=== PATIENT | female | born 1945 | race Caucasian/White ===

== ENCOUNTER 2018-04-04 21:43 | Emergency (ER) | payer OTHER, BC ==
[2018-04-04 22:19] VITALS: BP 108/86; PULSE 92; TEMP 98.6; BMI 24.0
--- NOTE | 2018-04-04 22:30 | PDOC ---
History of Present Illness - General Chief Complaint: Shortness of Breath Stated Complaint: SOB Time Seen by Provider: 04/04/18 22:05 History Source: Patient Exam Limitations: No Limitations - History of Present Illness Initial Comments: 04/04/18 22:24 This is a 73-year-old woman with past medical history of peptic ulcers, seizures , hyperlipidemia, bronchiectasis, basal cell carcinoma, A. fib who presents emergency Department with acute on chronic shortness of breath. Patient states she was recently diagnosed with bronchiectasis and is under the care of a program technician at the [facility]. At the same time she began seeing a tool die maker who increased her carvedilol at that time. Patient states that throughout the day today she was at her son's house and playing with the dog but did not have any exertion at that time. Patient also states she was in [place] one week ago and was evaluated for similar symptoms at that time. Patient states she is scheduled for an echo and stress test on April 19. She denies chest pain, dizziness, blurry vision, abdominal pain, nausea, vomiting. Tower Director: Ariadna Mojica Cards: [facility] Past History - Past Medical History Allergies/Adverse Reactions: Allergies Allergy/AdvReac Type Severity Reaction Status Date / Time adhesive Allergy Verified 04/04/18 21:56 bacitracin Allergy Verified 04/04/18 21:56 levofloxacin [From Levaquin] Allergy Verified 04/04/18 21:55 Sulfa (Sulfonamide Allergy Verified 04/04/18 21:55 Antibiotics) - Suicide/Smoking/Psychosocial Hx Smoking History: Never smoked Have you smoked in the past 12 months: No Information on smoking cessation initiated: No Hx Alcohol Use: No Drug/Substance Use Hx: No Review of Systems - Review of Systems Able to Perform ROS?: Yes Is the patient limited Tuvaluan proficient: No Constitutional: No: Symptoms Reported HEENTM: No: Symptoms Reported Respiratory: Yes: See HPI Cardiac (ROS): No: Symptoms Reported ABD/GI: No: Symptoms Reported : No: Symptoms Reported Musculoskeletal: No: Symptoms Reported Integumentary: No: Symptoms Reported Neurological: No: Symptoms reported Endocrine: No: Symptoms Reported Hematologic/Lymphatic: No: Symptoms Reported *Physical Exam - Vital Signs Last Vital Signs Temp Pulse Resp BP Pulse Ox 98.6 F 92 H 18 108/86 95 04/04/18 21:56 04/04/18 21:56 04/04/18 21:56 04/04/18 21:56 04/04/18 21:56 - Physical Exam General Appearance: Yes: Appropriately Dressed. No: Apparent Distress HEENT: positive: Normal ENT Inspection Neck: positive: Trachea midline, Supple Respiratory/Chest: positive: Lungs Clear, Normal Breath Sounds. negative: Respiratory Distress, Accessory Muscle Use Cardiovascular: positive: Irregularly Irregular. negative: Edema, Murmur Gastrointestinal/Abdominal: positive: Normal Bowel Sounds, Soft. negative: Tender Musculoskeletal: positive: Normal Inspection. negative: CVA Tenderness Extremity: positive: Normal Inspection Integumentary: positive: Normal Color, Dry, Warm Neurologic: positive: Fully Oriented, Alert, Normal Response, Motor Strength 02/10 ED Treatment Course - LABORATORY CBC & Chemistry Diagram: 04/04/18 22:48 04/04/18 22:48 Medical Decision Making - Medical Decision Making 04/04/18 22:48 A/P: 73-year-old female with multiple problems with acute on chronic shortness of breath Lungs clear to auscultation bilaterally Patient noted to have heart rate in the 40s upon examination. Differential diagnoses include ACS, CHF, bronchiectasis, A. fib, medication noncompliance. PE is less likely given patient is on therapeutic anticoagulation. Labs, EKG, chest x-ray Patient will likely need admission 04/04/18 23:40 Chest x-rays read by me: Angles clear. Cardiac silhouette is within normal limits. No pneumothorax is identified. No focal infiltrates or consolidations noted. EKG: A. fib with rate of 71. 04/05/18 00:29 04/05/18 01:10 Notified by RN the patient eloped from the emergency department. IV removed prior to departure. *DC/Admit/Observation/Transfer Diagnosis at time of Disposition: Shortness of breath - Discharge Dispostion Disposition: ELOPED - Referrals - Patient Instructions - Post Discharge Activity
[2018-04-04 23:09] LABS: EOS % 5.8 % (0-4.5); HEMATOCRIT 39.4 % (32.4-45.2); HEMOGLOBIN 13.3 GM/dL (10.7-15.3); MCH 31.8 pg (25.7-33.7); MCHC 33.9 g/dl (32.0-36.0); MEAN CELL VOLUME 93.9 fl (80-96); MEAN PLT VOLUME 8.6 fl (7.5-11.1); NEUT % 63.2 % (42.8-82.8); PLATELET COUNT 345 K/MM3 (134-434); RBC 4.19 M/mm3 (3.60-5.2); RDW 12.9 % (11.6-15.6); WHITE BLOOD COUNT 9.7 K/mm3 (4.0-10.0)
[2018-04-04 23:24] LABS: INR 1.94 (0.82-1.09); PROTHROMBIN TIME (PATIENT) 21.9 SEC (9.7-13.0)
--- NOTE | 2018-04-04 23:29 | PDOC ---
*Physical Exam - Vital Signs Last Vital Signs Temp Pulse Resp BP Pulse Ox 98.6 F 92 H 18 108/86 95 04/04/18 21:56 04/04/18 21:56 04/04/18 21:56 04/04/18 21:56 04/04/18 21:56 ED Treatment Course - LABORATORY CBC & Chemistry Diagram: 04/04/18 22:48 04/04/18 22:48 - ADDITIONAL ORDERS Additional order review: Laboratory Results 04/04/18 22:48 PT with INR 21.90 H INR 1.94 H 04/04/18 22:48 RBC 4.19 MCV 93.9 MCHC 33.9 RDW 12.9 MPV 8.6 Neutrophils % 63.2 Lymphocytes % 24.0 Monocytes % 6.0 Eosinophils % 5.8 H Basophils % 1.0 Medical Decision Making - Medical Decision Making 04/04/18 23:29 agree with care from MARIBELL Ryan *DC/Admit/Observation/Transfer Diagnosis at time of Disposition: Shortness of breath - Discharge Dispostion Disposition: ELOPED - Referrals - Patient Instructions - Post Discharge Activity
[2018-04-04 23:35] LABS: ALBUMIN 3.9 g/dl (3.4-5.0); ANION GAP 9 (8-16); BILIRUBIN,TOTAL 0.3 mg/dL (0.2-1.0); BLOOD UREA NITROGEN 26 mg/dL (7-18); CALCIUM 10.5 mg/dL (8.5-10.1); CHLORIDE 99 mmol/L (98-107); CO2 27 mmol/L (21-32); CREATININE 0.9 mg/dL (0.55-1.02); GLUCOSE,RANDOM 132 mg/dL (74-106); MAGNESIUM 1.8 mg/dL (1.8-2.4); POTASSIUM 4.3 mmol/L (3.5-5.1); SGOT/AST 19 U/L (15-37); SGPT/ALT 34 U/L (12-78); SODIUM 135 mmol/L (136-145); TOT PROT 7.3 g/dl (6.4-8.2)
[2018-04-04 23:38] LABS: ALK PHOS 58 U/L (45-117); N-TERMINAL BNP 557.64 pg/ml (5-450)
[2018-04-05] MEDS ORDERED: LABETALOL HCL 100 MG TABLET (FP) ONE (00:48)
--- NOTE | 2018-04-05 16:19 | EKG ---
Test Reason : Blood Pressure : / mmHG Vent. Rate : 071 BPM Atrial Rate : 288 BPM P-R Int : 000 ms QRS Dur : 096 ms QT Int : 390 ms P-R-T Axes : 000 059 072 degrees QTc Int : 423 ms ATRIAL FIBRILLATION ABNORMAL ECG NO PREVIOUS ECGS AVAILABLE Confirmed by ERLINDA HERNANDEZ MD ([id number]) on 04/05/2018 4:19:30 PM Referred By: Confirmed By:ERLINDA HERNANDEZ MD
== END 2018-04-05 01:01 | disposition left against medical advice (07) ==
LOC: JER 21:43
DX: R06.02 Shortness of breath (principal); J47.9 Bronchiectasis, uncomplicated; E78.5 Hyperlipidemia, unspecified; G40.909 Epilepsy, unspecified, not intractable, without status epilepticus; I48.91 Unspecified atrial fibrillation; Z87.11 Personal history of peptic ulcer disease; Z88.8 Allergy status to other drugs, medicaments and biological substances
CPT/HCPCS: 36415; 71046-TC-FY; 80053; 82550; 83735; 83880; 84484; 85025; 85610; 93005; 93010; 99283-25